=== PATIENT | male | born 1955 | race Caucasian/White ===

== ENCOUNTER 2020-03-14 13:26 | Emergency (ER) | payer OTHER, SELFPAY ==
[2020-03-14 13:28] VITALS: BP 152/94; PULSE 70; RESP 18; TEMP 36.8; O2SAT 97; BMI 28.1
[2020-03-14] MEDS: Diphth,Pertuss(Acell),Tet Vac 0.5 ML Vial IM (13:44)
[2020-03-14] MEDS: Bupivacaine Mpf 0.5% 30 ML VIAL INFILT (13:45)
--- NOTE | 2020-03-14 13:50 | RAD_ITS ---
STUDY: X-RAY - LEFT HAND, ATTENTION FIFTH FINGER REASON FOR EXAM: Male, 64 years old. 5TH DISTAL PHALANX PINCHED IN MACHINERY, PAIN TECHNIQUE: 3 view(s) of the finger were obtained. COMPARISON: None. FINDINGS: Normal metacarpal head. Normal metacarpophalangeal joint. Normal proximal phalanx. Normal middle phalanx. Normal distal phalanx. Normal proximal interphalangeal joint. Normal distal interphalangeal joint. 1 mm x 1.5 mm tiny radiopacity in the ventral soft tissues underlying the middle phalanx of the fifth digit. RAD/Finger(s) Min 2 Views IMPRESSION: Findings suggestive of a tiny radiopaque foreign body in the ventral soft tissues at the level of the mid phalanx of the fifth digit. Electronically Signed: Pravin Skelton, at 14:25 EST , Service support ,
--- NOTE | 2020-03-14 14:10 | ED.VISSUMM ---
- ER Visit Summary Date of Service: 03/14/20 Chief Complaint: Laceration History of Present Illness: The patient is a [address] Lopez. He got his left small finger caught under a transmission raheel and suffered a laceration. He reports he has an aching pain is 6 of 10 with movement for a 10 at rest. Denies any paresthesias. He is unsure when his last tetanus shot was. He is right-hand dominant. Physical Examination: Vitals: Stable. Afebrile. General: Well-nourished and well-developed. Head: Normocephalic atraumatic. Neck: Supple, no lymphadenopathy. No JVD. Nontender. Cardiovascular: Regular rate and rhythm. No murmurs. Respiratory: No respiratory distress. Clear to auscultation bilaterally. Abdominal: Soft, nontender, nondistended, normal bowel sounds. No guarding, rebound, or peritoneal signs. Back: Nontender. Extremities: To the distal phalanx of his left small finger there is an L-shaped laceration that extends over the medial portion of this. There is a small amount of tissue loss. He is neurovascularly intact. Skin: Normal color, no rash. Neurologic: Alert and oriented ?3. Cranial nerves II through XII are intact. Normal strength and sensation. Psych: Normal affect. Test Results: Clinical Impression(s) from Imaging Studies Finger X-Ray 03/14/20 13:50 IMPRESSION: Findings suggestive of a tiny radiopaque foreign body in the ventral soft tissues at the level of the mid phalanx of the fifth digit. Electronically Signed: Pravin Skelton, at 14:25 EST , Service support , Emergency Department Course and Treatment: Patient had his tetanus shot updated. He refused pain medications. He had his wound anesthetized and repaired. He tolerated this well. I did speak with him about the possibility of a metallic foreign body in the middle phalanx. He reports that this is likely been there for quite some time. This is not in the area of the laceration. Treatment Plan: Patient will be discharged instructions follow-up corporate care in 10 to 14 days for suture removal. Return to the emergency department for any worsening symptoms. Disposition: To home in improved and stable condition. Impression: 1. Crush injury left small finger. 2. Laceration left small finger, 2 cm, repaired. Procedure note: Wound was cleansed with chlorhexidine soap. Anesthetized with 1% lidocaine without epinephrine. Copiously irrigated with normal saline. Wound was explored there is no foreign material present. It was closed with 5 simple interrupted 4-0 ethilon sutures. The patient tolerated it well. This note was generated with [employer] dictation software. It may contain incorrect words, spelling, and punctuation that were not noted in review of the chart prior to signing ED Disposition - Plan for ED Patient: Instructions: ED Laceration, Hand: All Closures Referrals: [facility]Care [GROUP OF PHYSICIANS] - 10-14 Days suture removal
== END 2020-03-14 14:53 | disposition home or self-care (01) ==
PROVIDERS: Emergency Provider Emergency Medicine; PCP Family Medicine
DX: S61.217A Laceration without foreign body of left little finger without damage to nail, initial encounter (principal); Z23 Encounter for immunization; W23.0XXA Caught, crushed, jammed, or pinched between moving objects, initial encounter; Y93.89 Activity, other specified; Y92.89 Other specified places as the place of occurrence of the external cause; Y99.0 Civilian activity done for income or pay
CPT/HCPCS: 12001; 73140; 90471; 90715; 99284

== ENCOUNTER 2021-02-20 07:30 | Outpatient (RCR) | payer OTHER, SELFPAY ==
--- NOTE | 2021-02-06 09:38 | HP.PTEVAL_ITS ---
Patient's Visit Information ALONZO MAXWELL is a 65 year old M referred to Physical Therapy by JACKIE Bustos with a diagnosis of R leg pain. Date of Evaluation: 02/06/21 Physical Therapist: Rishabh Mehta, PT, ATC - Visit Plan Frequency: 2x /Week Duration: 2 Weeks Plan: Issue and instruct pt on HEP of core stab ex's, REIL, and LE stretching over next 4 visits - Subjective Pt reports he has had Pain in the anterior region of his R upper thigh for approximately one year. Pt reports the pain is intermittent in nature. Pt reports the pain occurs when he sits for a longer period of time. Pt reports a past MHx of a bone chip in a nerve that resulted in him having surgery for removeal which has left numbness on the anterior aspect of L thigh. Pt reports he did have a recent xray which revealed no significant findings. Pt reports his doctor ordered an MRI but that was declined until after he attempts PT. Pt reports occasional sleep difficulty sercondary to R leg pain. Pt reports walking helps to decrease his pain. 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 0/10 pain at rest, 7/10 pain at worst - Pain R leg pain Pain Intensity (Out of 10): 0 Pain Intensity Range: 7 - Objective Neuro: B LE sensation is WNL to light touch with exception to R anterior thigh which is hyposensitive to light touch. MMT: B LE 5/5 throughout. ROM: Pt is moderately limited with lumbar spine extension. All other movements are WNL. Repeated movements: RFIS 10x2 NE, SINGH 10x2 NE. Prone prop on elbows one min x 2. REIL 10x2 NE - Balance/Special Test Scores Oswestry Low Back Score: 10 - Goals Goal 1:: Decrease R LE pain x 50% to aid with sleep Goal Time Frame: 2-4 Weeks Goal 2:: Pt will physically and verbally display proper posture in order to prevent future episodes of R LE pain Goal Time Frame: 2-4 Weeks Goal 3:: I with HEP Goal Time Frame: 2-4 Weeks - Rehabilitation Potential Physical Therapy Diagnosis: Pt has R leg pain and intolerace for prolonged sitting secondary to L/S disc derrangement Rehabilitation Potential: Good - Anticipated Interventions Patient/Client Instruction: Educate patient on: Condition, Plan of Care For the Purpose of:: To improve self management Therapeutic Exercise to Include: Strength training, Endurance training, Body mechanics, Postural training, Flexibilty training, Dynamic Lumbar Stabilization, Julian Exercises For the Purpose of:: To decrease pain, To increase ROM, To improve muscle performance and motor function Thank you for the opportunity to evaluate your patient. For Medicare and Medicare HMO plans, please review the plan of care and approve it. It will need to be FAXED BACK to us at [phone] for Medicare purposes. For Medicare only, by signing this I certify the plan of care. Please let me know if there are questions or concerns regarding this plan of care. Physician Signature: Date:
--- NOTE | 2021-02-20 08:00 | HP.PTREVAL ---
Melanie Lehman, FINANCE ASSOCIATE-C, It has been my pleasure to treat ALONZO MAXWELL over the last 5 visits for R leg pain. Please see the progress note below for an update on the physical therapy plan of care! Subjective: I was sore yesterday, I feel good today. Objective/Function: Pt has no R LE pain. Pt is now I with HEP and displays proper postural awareness Plan Plan: Pt to follow up with surgeon with regards to recent MRI. Recheck or discharge pt pending visit and progression with HEP in one month. Balance/Gait/Functional tests - Balance/Special Test Scores Oswestry Low Back Score: 7 Goals Goal 1:: Decrease R LE pain x 50% to aid with sleep Goal Time Frame: 2-4 Weeks Goal Progress: Goal Met Goal 2:: Pt will physically and verbally display proper posture in order to prevent future episodes of R LE pain Goal Time Frame: 2-4 Weeks Goal Progress: Goal Met Goal 3:: I with HEP Goal Time Frame: 2-4 Weeks Goal Progress: Goal Met Anticipated Interventions Patient/Client Instruction: Educate patient on: Condition, Plan of Care For the Purpose of:: To improve self management Therapeutic Exercise to Include: Strength training, Endurance training, Body mechanics, Postural training, Flexibilty training, Dynamic Lumbar Stabilization, Julian Exercises For the Purpose of:: To decrease pain, To increase ROM, To improve muscle performance and motor function Please do not hesitate to contact me at [phone] by phone or if you have questions or concerns regarding this new plan of care! Sincerely, Rishabh Mehta, PT, ATC
--- NOTE | 2021-04-08 10:21 | HP.PT.NRP ---
ALONZO MAXWELL was seen in my office for initial evaluation on 02/06/21. The following Plan of Care was established for this patient: Initial Frequency: 2x /Week Initial Duration: 2 Weeks Patient/Client Instruction: Educate patient on: Condition, Plan of Care For the Purpose of:: To improve self management Therapeutic Exercise to Include: Strength training, Endurance training, Body mechanics, Postural training, Flexibilty training, Dynamic Lumbar Stabilization, Julian Exercises For the Purpose of:: To decrease pain, To increase ROM, To improve muscle performance and motor function This patient was last seen in our office . Pertinent comments regarding their Physical therapy will appear below: Pt was treated for 5 PT visits for R leg pain through the date of 02/20/21. Pt has not returned today and is therefore discontinued at this time. At this point I will be discontinuing this patient from physical therapy. I would be happy to see this patient again in the future if found appropriate by the physician. Thank you! Rishabh Mehta, PT, ATC Balance/Gait/Functional tests - Balance/Special Test Scores Oswestry Low Back Score: 7
== END 2021-02-20 19:00 | disposition home or self-care (01) ==
LOC: PT 07:30
PROVIDERS: PCP Family Medicine; Referring Provider Nurse Practitioner; Visit Provider Nurse Practitioner
DX: M51.16 Intervertebral disc disorders with radiculopathy, lumbar region (principal)
CPT/HCPCS: 97110; 97161; 97164

== ENCOUNTER 2021-11-07 04:55 | Emergency (ER) | payer OTHER, SELFPAY ==
[2021-11-07 04:57] VITALS: BP 189/102; PULSE 64; RESP 18; TEMP 36.4; O2SAT 96; BMI 29.0
--- NOTE | 2021-11-07 05:33 | RAD_ITS ---
STUDY: X-RAY - LUMBAR SPINE REASON FOR EXAM: Male, 66 years old. Low back pain with radiation to the left leg TECHNIQUE: 5 view(s) of the lumbar spine were obtained. COMPARISON: None FINDINGS: Normal lumbar lordosis. There is no substantial scoliosis. There is a normal alignment of the vertebrae. Mild multilevel endplate disease. Disc space loss most significantly at L5-S1. There is no demonstrated fracture. There is no demonstrated spondylolysis of the pars interarticulares. Anterior pelvic wall mesh markers. RAD/L/S Spine Min 4 Views IMPRESSION: Degenerative changes of the lumbar spine, most significant at L5-S1. No acute abnormal finding. Electronically Signed: Ze Henson MD at 6:05 EDT ,
[2021-11-07] MEDS: Orphenadrine 60 MG/2 ML Ampul IV (05:37)
[2021-11-07] MEDS: Ketorolac 30 MG/ML Syringe IV (05:37)
[2021-11-07 06:09] LABS: Bacteria 0 SEEN /hpf (None Seen); Color, Urine Yellow (Yellow); Glucose, Dipstick Normal (Normal); Ketone-Dipstick Negative (Negative); Leukocyte Esterase-Dipstick Negative /ul (Negative); Mucous, Urine 0 SEEN /hpf (<or=2+); Nitrite-Dipstick Negative (Negative); Occult Blood-Urine Negative /ul (Negative); Protein-Dipstick Negative (Negative); Red Blood Cells-Urine 0 SEEN /hpf (0-5); Squamous Epithelial Cells - UA 0 SEEN /hpf (0-5); Urine Bilirubin Dipstick Negative (Negative); Urine Clarity Clear (Clear); Urine Urobilinogen Normal (Normal); White Blood Cells 0 SEEN /hpf (0-5)
[2021-11-07] MEDS: Morphine 4 MG/ML Syringe IV (06:10)
[2021-11-07] MEDS: Ondansetron 4 MG/2 ML Vial IV (06:10)
--- NOTE | 2021-11-07 06:17 | EDS_ITS ---
HPI History of Present Illness Chief Complaint: Back Narrative Narrative: Patient is a 66-year-old male with past medical history of migraines and GERD. He states for approximately 1 month he has been having small intermittent twinges of left-sided low back pain. He denies any trauma during this time or excessive activity. He denies any loss of bowel or bladder control or IV drug use. He states as time has gone on he feels that the intensity of the back pain has been slowly worsening. He states he went to his family doctor in the last week secondary to the pain being persistent over the past month and was started on prednisone and Flexeril. Patient states that last night into this morning he has had increased pain in the left low back which radiates down towards the knee. He states it is difficult to walk secondary to this. He denies any fevers or chills dysuria or hematuria. He states however as the pain seems to be worsening despite taking the medication from his provider he comes in for evaluation [facility] Medical History GERD (gastroesophageal reflux disease) Kidney stones Migraines Home Medications divalproex 250 mg tablet,delayed release 250 mg PO BIDCM 03/14/20 [History Last Taken Unknown] esomeprazole magnesium 40 mg capsule,delayed release 40 mg PO DAILY 03/14/20 [H istory Last Taken Unknown] sumatriptan succinate 25 mg tablet 25 mg PO PRN PRN MIGRAINES 03/14/20 [History Last Taken Unknown] cholecalciferol (vitamin D3) 50 mcg (2,000 unit) capsule (Vitamin D3) 50 mcg PO DAILY 11/07/21 [History Last Taken Unknown] cyclobenzaprine 5 mg tablet 5 mg PO QHS 11/07/21 [History Last Taken Unknown] ketorolac 10 mg tablet 10 mg PO Q6H PRN pain 5 days #20 tabs 11/07/21 [Rx Last Taken Unknown] methocarbamol 500 mg tablet 1,000 mg PO Q6H PRN Muscle pain/spasm #56 tabs 11/07/21 [Rx Last Taken Unknown] oxycodone-acetaminophen 5 mg-325 mg tablet (Endocet) 1 tab PO Q6H PRN pain 3 days #12 tabs 11/07/21 [Rx Last Taken Unknown] Allergy/AdvReac Type Severity Reaction Status Date / Time prochlorperazine Allergy Anaphylaxis Verified 03/14/20 13:27 [From Compazine] Surgical History (Updated 11/07/21 @ 05:04 by Rocio Kauffman) History of appendectomy History of hernia surgery Previous back surgery Social History Smoking Status: Never smoker ROS ROS ED Constitutional Constitutional ED: Denies chills or fever(s) ENT ENT ED: Denies sore throat Cardiovascular Cardiovascular: Denies chest pain Respiratory/Chest Respiratory/Chest: Denies cough or dyspnea Gastrointestinal Gastrointestinal: Denies abdominal pain, diarrhea, nausea or vomiting Genitourinary Genitourinary ED: Denies dysuria or hematuria Musculoskeletal Musculoskeletal: Reports back pain; Denies myalgias Integumentary Denies rash Neurologic Neurologic: Denies headache(s) or paresthesias Hematologic/Lymphatic Hematologic/Lymphatic: Denies easy bleeding or easy bruising EXAM Physical Exam Const Vital Signs: 11/07/21 04:57 Temperature 97.5 F L Temperature Source Oral Pulse Rate 64 Respiratory Rate 18 Blood Pressure 189/102 H Blood Pressure Mean 131 Pulse Ox 96 Oxygen Delivery Method Room Air Positive well nourished and well developed General Appearance ED: well developed Eyes PERRL and EOMs intact bilaterally Neck supple Resp normal respiratory effort and clear to auscultation bilaterally Cardio regular rate and regular rhythm Rate: other Other Details: Radial pulses are plus 2 out of 4 bilaterally are equal and symmetric GI normal to inspection, nondistended, normoactive bowel sounds, non-tender and non-distended Auscultation: normoactive bowel sounds Palpation: soft Back/Spine no CVA tenderness Back/Spine Narrative: No bony deformity or step-off of the thoracic or lumbar spine no midline pain on palpation. There is left paralumbar tenderness and spasm noted. There is also pain with palpation along the left lateral thigh in the L5-S1 dermatomal region. no saddle anesthesia. No clonus or Babinski. Negative straight leg raise. Patellar reflexes are plus 2 out of 4 on the right and plus 1 out of 4 on the left Extremity normal to inspection Neuro oriented x3 and CN's II-XII intact bilaterally Sensorium / Orientation: alert Psych mental status grossly normal Skin no rashes or lesions noted Skin Narrative: No soft tissue changes to suggest trauma or infection MDM MDM MDM Narrative Medical decision making narrative: Patient presented to the ER hypertensive but otherwise with stable vitals. I believe the hypertension was related to the pain and did not feel there is a ne ed for a cardiovascular work-up secondary to this. The patient has a previous history of back issues with previous trauma leading to a bone spur pushing on his nerve root. He denies any recent trauma but does state he has been performing normal daily activities and work activities and doing lifting pulling and pushing. He does not have findings concerning for cauda equina or epidural abscess. X-ray showed degenerative changes of the lumbar sacral spine greatest at the L5-S1 region without acute fracture or spondylolisthesis. Urine showed no sign of infection or kidney stone. Patient was medicated with Toradol Norflex and then morphine and did have good resolution of pain. At this time with his diminished reflex and location of pain there is concern that he is developed a herniated disc once again. However as pain is now controlled and patient is able to ambulate there is no need for an emergent MRI orthopedic consultation. Patient can be given symptomatic medications and follow-up with orthopedics on an outpatient basis to discuss need for repeat imaging studies and/or possible surgical intervention Lab Data Attestation: I reviewed the patient's lab results. Labs: Laboratory Results - last 24 hr 11/07/21 06:02 Urine Color Yellow Urine Clarity Clear Urine pH 6.0 Ur Specific Bryant 1.020 Urine Protein Negative Urine Glucose (UA) Normal Urine Ketones Negative Urine Occult Blood Negative Urine Nitrite Negative Urine Bilirubin Negative Urine Urobilinogen Normal Ur Leukocyte Esterase Negative Urine RBC 0 SEEN Urine WBC 0 SEEN Ur Squamous Epith Cells 0 SEEN Urine Bacteria 0 SEEN Urine Mucus 0 SEEN Radiography Diagnostic Testing: Clinical Impression(s) from Imaging Studies Lumbar Spine X-Ray 11/07/21 05:33 IMPRESSION: Degenerative changes of the lumbar spine, most significant at L5-S1. No acute abnormal finding. Electronically Signed: Ze Henson MD at 6:05 EDT , X-ray of the lumbosacral spine as interpreted by the emergency medicine physician reveals mild degenerative changes without acute fracture or spondylolisthesis Discharge Plan Triage Chief Complaint: Back ED Provider: Jose Ivy Dx/Rx/DC Orders Clinical Impression: Acute left lumbar radiculopathy, Degenerative disc disease at L5-S1 level Instructions: Understanding Lumbar Radiculopathy, ED Degenerative Disk Disease Prescriptions: New oxycodone-acetaminophen [Endocet] 5-325 mg tablet 1 tab PO Q6H PRN (Reason: pain) 3 Days Qty: 12 0RF ketorolac 10 mg tablet 10 mg PO Q6H PRN (Reason: pain) 5 Days Qty: 20 0RF methocarbamol 500 mg tablet 1,000 mg PO Q6H PRN (Reason: Muscle pain/spasm) Qty: 56 0RF No Action divalproex 250 MG tablet 250 mg PO BIDCM sumatriptan succinate 25 MG tablet 25 mg PO PRN PRN (Reason: MIGRAINES) esomeprazole magnesium 40 MG capsule,delayed release(DR/EC) 40 mg PO DAILY cyclobenzaprine 5 mg tablet 5 mg PO QHS Label Comments: TAKE 1 TABLET BY MOUTH 3 TIMES A DAY FOR 10 DAYS. cholecalciferol (vitamin D3) [Vitamin D3] 50 mcg (2,000 unit) Capsule 50 mcg PO DAILY Primary Care Provider: Nura Soler Referrals: Nura Soler DO [Primary Care Provider] - Activity Restrictions/Additional Instructions: Please follow-up with your orthopedic surgeon as your history and physical exam indicates that you are having possible herniated disc causing nervous compression that may require an MRI for further diagnosis and or surgical planning. Please take the prescribed medication as directed to help control pain. Please stop the cyclobenzaprine/Flexeril and begin taking Robaxin/methocarbamol for improved muscle spasm relief that we will not lead to increase sedation. Please return to the ER should you have any further concerns Disposition Disposition: Home, Self Care
[2021-11-07 07:17] VITALS: BP 149/92
== END 2021-11-07 07:18 | disposition home or self-care (01) ==
PROVIDERS: Emergency Provider Emergency Medicine; Visit Provider Emergency Medicine
DX: M51.37 Other intervertebral disc degeneration, lumbosacral region (principal); M47.26 Other spondylosis with radiculopathy, lumbar region; K21.9 Gastro-esophageal reflux disease without esophagitis; Z79.52 Long term (current) use of systemic steroids; Z79.899 Other long term (current) drug therapy
CPT/HCPCS: 72110; 72158; 80048; 81001; 96374; 96375; 96376; 99283; A9575; A4216; J2405

== ENCOUNTER 2021-11-07 16:57 | Emergency (ER) | payer OTHER, SELFPAY ==
[2021-11-07 16:58] VITALS: BP 148/98; PULSE 58; RESP 16; RESP 18; TEMP 35.8; O2SAT 97; BMI 28.1
--- NOTE | 2021-11-07 17:14 | MRI_ITS ---
STUDY: MRI LUMBAR SPINE WITHOUT CONTRAST REASON FOR EXAM: Male, 66 years old. Lumbar back pain lt radiculopathy, prev lumbar surg 2014 TECHNIQUE: MRI examination lumbar spine obtained with standard protocol including multiplanar multiecho pre and postcontrast imaging. Contrast: 17 mL to dotarem. COMPARISON: None FINDINGS: Vertebral bodies and alignment. 1. Vertebral body height and alignment are maintained. No evidence of marrow edema or occult fracture. 2. Paraspinous soft tissue planes have normal appearance. Normal appearance of the muscular fascial planes of the erector spinae. 3. Normal appearance of the sacrum and sacroiliac joints. 4. No areas of abnormal contrast enhancement. Intervertebral disks levels. T12-L1: Mild facet hypertrophic changes, no evidence of disc herniation or canal stenosis. L1-2: Disc desiccation, broad-based posterior disc bulge without evidence of disc herniation or canal stenosis. Facet hypertrophic changes are present. L2-3: Disc desiccation, broad-based posterior disc bulge/borderline protrusion, mild effacement of the lateral recesses greater on the RIGHT than LEFT without nemo nerve root impingement. No canal stenosis. There are findings consistent with prior RIGHT laminectomy. L3-4: Broad-based posterior disc bulge and osteophyte formation, no evidence of canal stenosis, there is narrowing of the lateral recesses with crowding of nerve roots without nemo nerve root impingement. Mild foraminal narrowing is noted without nemo nerve root impingement. Mild facet arthropathy. L4-5: LEFT posterolateral disc protrusion with a foraminal disc herniation, compression and LEFT lateral recess with mild impingement of the emerging LEFT L5 nerve root within the LEFT lateral recess, additional impingement of the L4 nerve root in the LEFT lateral recess. No canal stenosis. Mild facet hypertrophic changes. Lateral recess without nemo of the L5-S1: Disc desiccation, broad-based mildly eccentric LEFT greater than RIGHT disc protrusion osteophyte complex without canal or foraminal narrowing. No evidence of nerve root impingement. Spinal cord: Normal appearance of the spinal cord and conus. Conus is located at L1. Cauda equina has normal appearance. No evidence of cord compression or edema. No intramedullary signal abnormality noted. MRI/Spine Lumbar W/WO Contrast IMPRESSION: 1. Moderate multilevel lumbar spondylosis. There is a RIGHT posterolateral disc bulge/for line protrusion at L2-3 with effacement of the RIGHT lateral recess and RIGHT neural foramen without canal stenosis. No nemo nerve root impingement at this level. 2. LEFT posterior lateral foraminal disc herniation at L4-5 with an impingement of the LEFT L5 nerve root in the LEFT lateral recess and LEFT L4 nerve root in the LEFT neural foramen. No canal stenosis. 3. Disc desiccation and broad-based mildly eccentric disc protrusion and osteophyte at L5-S1 without evidence of canal or foraminal narrowing. 4. Normal appearance of visualized spinal cord, conus and cauda equina. No intradural or intramedullary signal or contrast abnormality. 5. Postoperative changes of prior laminectomy on the RIGHT at L2-3. Electronically Signed: Rupert Pompa MD at 20:48 EDT ,
--- NOTE | 2021-11-07 17:16 | ED.VIS.BACK ---
HPI History of Present Illness Chief Complaint: Back Informant: patient and spouse/S.O. Onset/Context/Timing Onset: Weeks Context: Gradual Onset Timing: Continuous Quality: Sharp and Burning Location: Lumbar and Left Leg Current Severity: Moderate Maximum Severity: Severe Worsened by: improves with Movement, Ambulation, Bending and Lifting Relieved by: Remaining Still Associated Symptoms Associated Symptoms: Radiation to Left Leg; Negative for Fever, Abdominal Pain, Dysuria, Unable to Ambulate, Unable to Transfer, Urinary Retention, Urinary Incontinence, Constipation or Fecal Incontinence Narrative Narrative: 66-year-old male history of prior back surgery done by Dr. Nura Rodriguez of the [facility] physician group. Patient states for last month has had increasing lower back pain radiating to his left buttock and down his leg to his knee. This is seen emergency department earlier today received pain medication but the pain is now back. He denies any bowel or bladder incontinence. No fever. He is on no anticoagulants. He has no bowel or bladder incontinence or retention. He denies any fall or trauma. No fever. Had a similar episode on the right in the past and it was there was a bone chip compressing a nerve he states he had the surgery and it resolved the symptoms. Prior similar symptoms: Yes Recent Illness/Hospitalization: No PFSH [facility] Medical History GERD (gastroesophageal reflux disease) Kidney stones Migraines Home Medications divalproex 250 mg tablet,delayed release 250 mg PO BIDCM 03/14/20 [History Last Taken Unknown] esomeprazole magnesium 40 mg capsule,delayed release 40 mg PO DAILY 03/14/20 [History Last Taken Unknown] sumatriptan succinate 25 mg tablet 25 mg PO PRN PRN MIGRAINES 03/14/20 [History Last Taken Unknown] cholecalciferol (vitamin D3) 50 mcg (2,000 unit) capsule (Vitamin D3) 50 mcg PO DAILY 11/07/21 [History Last Taken Unknown] cyclobenzaprine 5 mg tablet 5 mg PO QHS 11/07/21 [History Last Taken Unknown] ketorolac 10 mg tablet 10 mg PO Q6H PRN pain 5 days #20 tabs 11/07/21 [Rx Last Taken Unknown] methocarbamol 500 mg tablet 1,000 mg PO Q6H PRN Muscle pain/spasm #56 tabs 11/07/21 [Rx Last Taken Unknown] ondansetron 4 mg disintegrating tablet 4 mg PO Q6H PRN nausea and vomiting #10 tabs 11/07/21 [Rx Last Taken Unknown] oxycodone-acetaminophen 5 mg-325 mg tablet (Endocet) 1 tab PO Q6H PRN pain 3 days #12 tabs 11/07/21 [Rx Last Taken Unknown] Allergy/AdvReac Type Severity Reaction Status Date / Time prochlorperazine Allergy Anaphylaxis Verified 03/14/20 13:27 [From Compazine] Surgical History History of appendectomy History of hernia surgery Previous back surgery Social History Smoking Status: Never smoker ROS ROS ED ROS Narrative Back pain radiating to his left leg. Review of Systems ROS Unobtainable: Denies due to encephalopathy Constitutional Constitutional ED: Denies chills or fever(s) Eyes Eyes: Denies blurry vision ENT ENT ED: Denies ear pain Cardiovascular Cardiovascular: Denies chest pain or palpitations Respiratory/Chest Respiratory/Chest: Denies dyspnea Gastrointestinal Gastrointestinal: Denies abdominal pain Genitourinary Genitourinary ED: Denies dysuria Musculoskeletal Musculoskeletal: Reports back pain; Denies arthralgias Integumentary Denies abscess or Abrasions Neurologic Neurologic: Denies headache(s) Psychiatric Psychiatric: Denies anxiety Endocrine Endocrinology: Denies cold intolerance Hematologic/Lymphatic Hematologic/Lymphatic: Denies easy bleeding Allergic/Immunologic Allergic/Immunologic ED: Denies mouth swelling or tongue swelling EXAM Physical Exam Narrative Exam Narrative: 66-year-old male vital signs are stable afebrile. H EENT exam unremarkable. Neck nontender. Lungs auscultation bilaterally. Heart regular rhythm no murmur. Abdomen soft nontender normal bowel sounds no peritoneal signs. Moving all 4 extremities. Positive straight leg raise on the left at about 15 to 30 degrees. Dorsi plantarflexion intact bilaterally. No cauda equina. No saddle anesthesia. Normal motor strength and sensation. Back tenderness over the left SI joint. Neurologically is awake alert with no focal motor deficits. No cauda equina. No saddle anesthesia. Normal medial thigh sensation. Const Vital Signs: 11/07/21 16:58 11/07/21 16:58 11/07/21 20:27 Temperature 96.5 F L 96.5 F L Temperature Source Temporal Temporal Pulse Rate 58 L 58 L 55 L Respiratory Rate 18 16 15 Blood Pressure 148/98 H 148/98 H 154/91 H Blood Pressure Mean 114 114 112 Pulse Ox 97 97 95 Oxygen Delivery Method Room Air Room Air Room Air Positive well nourished and well developed; Negative for obese, cachectic or contractures General Appearance ED: well developed; Negative for cachectic or contractures Nutritional Appearance: Negative for cachectic or obese HEENT Reports moist mucous membranes; Denies dry mucous membranes Negative for trauma or tenderness Mouth ED: No dry mucous membranes Mouth: No dry mucous membranes Eyes PERRL and EOMs intact bilaterally General Eye ED: Negative for pale conjunctiva or scleral icterus Neck no lymphadenopathy, supple and no JVD General: Negative for tenderness Thyroid: Negative for other Resp normal respiratory effort and clear to auscultation bilaterally Effort and Inspection: Negative for pain with movement Auscultation: Negative for rales or rhonchi Percussion: Negative for other Cardio regular rate, regular rhythm, S1 normal heart sound, S2 normal heart sound and no murmurs Rhythm: Negative for abnormal rhythm GI normal to inspection, nondistended, normoactive bowel sounds, soft to palpation, non-tender, non-distended and no masses Inspection: Negative for abdominal distention Palpation: Negative for tender or guarding Back/Spine normal to inspection and no thoracic nor lumbar tenderness Back/Spine Narrative: Left SI tenderness. Positive straight leg raise test on the left about 15 to 30 degrees. Cervical Spine: Negative for cervical spine tenderness Thoracic Spine / Upper Back: Negative for paraspinal muscle tenderness Extremity normal to inspection and no clubbing, cyanosis or edema Extremity Narrative: Normal motor strength and sensation. Neuro oriented x3 and no sensory deficits noted Sensorium / Orientation: alert; Negative for confused, lethargic or stuporous Motor Exam: strength 5/5 throughout Psych mental status grossly normal Attitude: No agitated Mood & Affect: Negative for depressed, sad or tearful Skin no rashes or lesions noted and no wounds General Skin Exam: Negative for jaundice Lesions: No lesion noted Rashes: No rashes noted Trauma: Negative for abrasion Wounds: Negative for wounds noted MDM MDM MDM Narrative Medical decision making narrative: 66-year-old male with prior back surgery. Presents with increasing low back pain for a month with radiculopathy to his left knee. Positive straight leg raise on the left. He has intractable pain he was seen earlier today and is already returning because the pain so severe. MRI will be obtained. Concern is for disc or some type of nerve compression process. Patient be treated with IV Dilaudid and Zofran. Patient had an MRI needed more pain medication and was given a second dose of IV Dilaudid. Had nausea and was given IV Zofran. Repeat exam patient's pain is much better at 930. He did receive a total of 2 mg IV of Dilaudid. He is having some nausea if not noted be given another dose of Zofran. Otherwise we discussed his MRI results. He is in a follow-up with Dr. Nura Rodriguez of the [facility] who is his spine surgeon who did surgery on him in the past. He already has Percocet and Toradol at home for pain. Have also be written for Zofran for his nausea. And they know to call and follow-up with the applications support specialist as soon as possible. Lab Data Attestation: I reviewed the patient's lab results. Lab results narrative: Chemistry was obtained due to the MRI with contrast. He had a BUN of 21 and a creatinine 0.7. Glucose of 90. Gap of 6. He was basically unremarkable. Labs: Laboratory Results - last 24 hr 11/07/21 17:35 Sodium 139 Potassium 3.9 Chloride 105 Carbon Dioxide 28.0 Anion Gap 6 BUN 21 H Creatinine 0.78 Estim Creat Clear Calc 92.56 Est GFR (MDRD) Af Amer 129 Est GFR (MDRD) Non-Af 107 BUN/Creatinine Ratio 27.0 H Glucose 90 Calcium 8.3 L Radiography Diagnostic Testing: Clinical Impression(s) from Imaging Studies Lumbar Spine MRI 11/07/21 17:14 IMPRESSION: 1. Moderate multilevel lumbar spondylosis. There is a RIGHT posterolateral disc bulge/for line protrusion at L2-3 with effacement of the RIGHT lateral recess and RIGHT neural foramen without canal stenosis. No nemo nerve root impingement at this level. 2. LEFT posterior lateral foraminal disc herniation at L4-5 with an impingement of the LEFT L5 nerve root in the LEFT lateral recess and LEFT L4 nerve root in the LEFT neural foramen. No canal stenosis. 3. Disc desiccation and broad-based mildly eccentric disc protrusion and osteophyte at L5-S1 without evidence of canal or foraminal narrowing. 4. Normal appearance of visualized spinal cord, conus and cauda equina. No intradural or intramedullary signal or contrast abnormality. 5. Postoperative changes of prior laminectomy on the RIGHT at L2-3. Electronically Signed: Rupert Pompa MD at 20:48 EDT , Discharge Plan Triage Chief Complaint: Back ED Provider: Aime Michael Dx/Rx/DC Orders Clinical Impression: Acute left lumbar radiculopathy, Degenerative disc disease at L5-S1 level Instructions: ED Degenerative Disk Disease Prescriptions: New ondansetron 4 mg tablet,disintegrating 4 mg PO Q6H PRN (Reason: nausea and vomiting) Qty: 10 0RF No Action divalproex 250 MG tablet 250 mg PO BIDCM sumatriptan succinate 25 MG tablet 25 mg PO PRN PRN (Reason: MIGRAINES) esomeprazole magnesium 40 MG capsule,delayed release(DR/EC) 40 mg PO DAILY cyclobenzaprine 5 mg tablet 5 mg PO QHS Label Comments: TAKE 1 TABLET BY MOUTH 3 TIMES A DAY FOR 10 DAYS. cholecalciferol (vitamin D3) [Vitamin D3] 50 mcg (2,000 unit) Capsule 50 mcg PO DAILY oxycodone-acetaminophen [Endocet] 5-325 mg tablet 1 tab PO Q6H PRN (Reason: pain) 3 Days Qty: 12 0RF ketorolac 10 mg tablet 10 mg PO Q6H PRN (Reason: pain) 5 Days Qty: 20 0RF methocarbamol 500 mg tablet 1,000 mg PO Q6H PRN (Reason: Muscle pain/spasm) Qty: 56 0RF Primary Care Provider: Nura Soler Referrals: Sandip Rodriguez DO [Non-Staff] - As soon as possible Nura Soler DO [Primary Care Provider] - Activity Restrictions/Additional Instructions: Your pain medications as prescribed. Zofran as needed for nausea. You may swallow it or let dissolve in your tongue. Call and follow-up with your applications support specialist Dr. Nura Rodriguez at the [facility] tomorrow morning and see when engaging in soon as possible. Disposition Disposition: Home, Self Care
[2021-11-07] MEDS: Ondansetron 4 MG/2 ML Vial IV ×3 (17:26→21:38)
[2021-11-07] MEDS: HYDROmorphone 1 MG/ML Syringe IV ×2 (17:28→19:20)
[2021-11-07 17:59] LABS: Anion Gap 6 (5-15); BUN 21 mg/dL (7-18); Calcium,Total 8.3 mg/dL (8.5-10.1); Chloride 105 mmol/L (98-107); Creatinine, Serum 0.78 mg/dL (0.70-1.30); EST Glomerular Filtration Rate 107 mL/min (>60); Est Glom Filt Rate - Afr Amer 129 mL/min (>60); Estimated Creatinine Clearance 92.56 ml/min; Glucose 90 mg/dL (74-106); Potassium 3.9 mmol/L (3.5-5.1); Sodium Level 139 mmol/L (136-145)
[2021-11-07 20:27] VITALS: BP 154/91; PULSE 55; RESP 15; O2SAT 95
[2021-11-07 21:29] VITALS: BP 146/86; PULSE 50; RESP 15; O2SAT 96
== END 2021-11-07 22:15 | disposition home or self-care (01) ==
PROVIDERS: Emergency Provider Emergency Medicine; Visit Provider Emergency Medicine
DX: M51.37 Other intervertebral disc degeneration, lumbosacral region (principal); M47.26 Other spondylosis with radiculopathy, lumbar region; R11.0 Nausea; Z98.890 Other specified postprocedural states
CPT/HCPCS: 96375; 96376; 96374; 72158; 80048; A9575; A4216; J2405

== ENCOUNTER 2022-10-24 13:30 | Emergency (ER) | payer OTHER, SELFPAY ==
[2022-10-24 13:31] VITALS: BP 164/101; PULSE 87; RESP 18; TEMP 36.6; O2SAT 95; BMI 27.9
[2022-10-24] MEDS: Lidocaine 1% (20 ml mdv) 20 ML Vial INFILT (13:47)
[2022-10-24] MEDS: Diphth,Pertuss(Acell),Tet Vac 0.5 ML Vial IM (13:52)
[2022-10-24 13:55] VITALS: RESP 16
--- NOTE | 2022-10-24 14:32 | EX.ED.GENINJ ---
HPI History of Present Illness Chief Complaint: Laceration Informant: patient Narrative Narrative: 67 old male was at work today when he sustained a right hand injury. The patient was holding on to a pipe while somebody else was hammering it. The pipe came up and injured his right thumb and middle finger. He notes there was a dime sized area of skin that was superficially avulsed off the dorsum of the right thumb as well as an approximate 4 cm linear laceration over the medial aspect of the thumb. Bleeding controlled at the scene. He also notes a small laceration over the distal tip of the right middle finger and a partial nail avulsion of the same finger. Unknown last tetanus. He notes the pain is improved. He denies any loss of motion or sensation. He denies any other injuries. Tetanus Immunization: Unknown [facility] Medical History GERD (gastroesophageal reflux disease) Kidney stones Migraines Home Medications esomeprazole magnesium 40 mg capsule,delayed release 40 mg PO DAILY 03/14/20 [History Last Taken Unknown] sumatriptan succinate 25 mg tablet 25 mg PO PRN PRN MIGRAINES 03/14/20 [History Last Taken Unknown] hydrocodone-acetaminophen 5-325mg 5mg-325mg 1 tab PO Q6H PRN PRN Pain 3 days #10 TABLETS 10/24/22 [Rx Last Taken Unknown] Allergy/AdvReac Type Severity Reaction Status Date / Time prochlorperazine Allergy Anaphylaxis Verified 10/24/22 13:34 [From Compazine] Surgical History History of appendectomy History of hernia surgery Previous back surgery Social History (Updated 10/24/22 @ 14:[address] Mike Richardson DO) current gender identity: male Smoking Status: Never smoker ROS ROS ED Constitutional Constitutional ED: Denies chills or weight loss Eyes Eyes: Denies change in vision or diplopia ENT ENT ED: Denies ear pain, rhinorrhea or sore throat Cardiovascular Cardiovascular: Denies chest pain, orthopnea, palpitations or racing heartbeat Respiratory/Chest Respiratory/Chest: Denies cough, dyspnea or orthopnea Gastrointestinal Gastrointestinal: Denies abdominal pain, diarrhea, nausea or vomiting Genitourinary Genitourinary ED: Denies dysuria, hematuria or urinary frequency Musculoskeletal Musculoskeletal: Reports other Details: see HPI ; Denies arthralgias or myalgias Integumentary Denies abscess or rash Neurologic Neurologic: Denies headache(s) or weakness Psychiatric Psychiatric: Denies anxiety, depression, suicidal ideation or suicidal thoughts Endocrine Endocrinology: Denies polydipsia, polyphagia or polyuria Allergic/Immunologic Allergic/Immunologic ED: Denies mouth swelling, tongue swelling or urticaria EXAM Physical Exam Const Vital Signs: 10/24/22 13:31 10/24/22 13:55 10/24/22 14:41 Temperature 97.8 F Temperature Source Temporal Pulse Rate 87 Respiratory Rate 18 16 18 Blood Pressure 164/101 H Blood Pressure Mean 122 Pulse Ox 95 Oxygen Delivery Method Room Air Positive well nourished and well developed General Appearance ED: well developed HEENT Reports normocephalic, head/scalp atraumatic and moist mucous membranes Eyes PERRL and EOMs intact bilaterally Neck no lymphadenopathy, supple and no JVD Resp normal respiratory effort and clear to auscultation bilaterally Cardio regular rate, regular rhythm and no murmurs GI normal to inspection, nondistended, normoactive bowel sounds and non-tender Palpation: soft Back/Spine no CVA tenderness and normal ROM Extremity Extremity Narrative: Right Thumb - 4 cm linear laceration over medial aspect with mild venous bleeding. Right Middle Finger - 0.5 cm laceration distal tip with distal, lateral 1/4 nail partial avulsion. No subungal hematoma. NVI to motor and sensory Tendon function intact General Extremety ED: Negative for edema General Extremity: Negative for edema Neuro oriented x3 and CN's II-XII intact bilaterally Sensorium / Orientation: alert Motor Exam: strength 5/5 throughout Psych mental status grossly normal Mood & Affect: Negative for depressed or tearful Skin no rashes or lesions noted MDM MDM MDM Narrative Medical decision making narrative: The right thumb was locally anesthetized using 1% lidocaine. The right middle finger was anesthetized using a single volar approach for digital block using 1% lidocaine. Once adequate anesthesia was obtained the hands which were heavily soiled from work were washed with soap and water. Each finger was then scrubbed using Betadine and sterile saline. The right thumb was closed using a total of 8 simple interrupted 4-0 Ethilon sutures. Good wound approximation was obtained. The wound was dressed with Vaseline coated gauze and sterile gauze. The right middle finger laceration was closed using 2 simple interrupted 4-0 Ethilon sutures. The partially avulsed 25% distal nail avulsion was fully removed. The nailbed was obliterated and the nail margins revised. The wound was dressed the same as the thumb. Patient's tetanus was updated with Adacel. Wound care discussed with patient. Stitches will need to be removed in approximately 10 days. He was advised on Motrin for pain and he received prescription for [place] for further pain control. Return instructions including for wound infection were given. Follow-up will be with the [facility]. Patient had no further questions regarding care. Discharge Plan Triage Chief Complaint: Laceration ED Provider: Mike Richardson Dx/Rx/DC Orders Clinical Impression: Finger laceration, Laceration of finger with damage to nail Instructions: ED Laceration, Hand: All Closures Prescriptions: New hydrocodone-acetaminophen [hydrocodone-acetaminophen] 5-325 mg tablet 1 tab PO Q6H PRN PRN (Reason: Pain) 3 Days Qty: 10 0RF No Action sumatriptan succinate 25 MG tablet 25 mg PO PRN PRN (Reason: MIGRAINES) esomeprazole magnesium 40 MG capsule,delayed release(DR/EC) 40 mg PO DAILY Primary Care Provider: Rupert Falk NP Referrals: [facility] [Non-Staff] - 10 Day for suture removal Rupert Falk NP, NUTRITION TECH-C [Primary Care Provider] - Disposition Disposition: Home, Self Care
[2022-10-24 14:41] VITALS: RESP 18
== END 2022-10-24 14:45 | disposition home or self-care (01) ==
PROVIDERS: Emergency Provider Emergency Medicine; PCP Nurse Practitioner Family; Visit Provider Emergency Medicine
DX: S61.011A Laceration without foreign body of right thumb without damage to nail, initial encounter (principal); S61.312A Laceration without foreign body of right middle finger with damage to nail, initial encounter; Z23 Encounter for immunization; W26.8XXA Contact with other sharp object(s), not elsewhere classified, initial encounter
CPT/HCPCS: 12002; 90471; 90715; 99283

== ENCOUNTER 2023-03-13 07:30 | Outpatient (RCR) | payer OTHER, SELFPAY ==
--- NOTE | 2023-02-10 15:43 | HP.PTEVAL_ITS ---
Patient's Visit Information Visit Information Visit Information: ALONZO MAXWELL is a 67 year old M referred to Physical Therapy by RUBY YBARRA with a diagnosis of L ITB syndorme, trochanteric bursitis. Date of Evaluation: 02/10/23 Physical Therapist: Enoc Loving, DPT, OCS, CSCS Visit Plan Frequency: 2x /Week Duration: 4-6 Weeks Plan: 2x/week for 3-6 for 1. US nonthermal when painful to L GT bursa area. rollout and STM to HS adn ITB L. 2. Teach HS and piriformis stretch for HPE iwth pics(already doing ITB) 3. strengthen core and hips to HEP 4. TENS and ice if needed. L hip Subjective Subjective: L hip pain. been hurting for 3 months plus. Not sure why it started. Saw [facility] clinic and had x rays and joints are good. ortho today said trochanteric buristis and ITb syndrome. Had back surgery 1.5 yrs ago. no new jobs or hobbies. No regular exercises. 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 suffers through it right now and takes advil. Today is good day. Not sure why it is up and down day to day. Most nights wakes up with pain L hip, sleeps on side at night. Hobbies: work, smoke meat. Pain L hip pain: Pain Intensity (Out of 10): 0 Pain Intensity Range: 0 and 9 Objective Objective: Walking without antalgia today , transfers easily and steps without pain or rail today. Tender over L GT bursa but not ITB. Max tight L HS and ITB, mod in piriformis and min in quads B. reflexes 2/3 patella and achilles sensation LE WNL to gross light touch in LE LB AROM stiff in ext and flexion and min deficits SB but not painful - slump - SLR strength LE 4/5 in hip abd and ext, 4 in flexion, knee ext and flexion 4+, ankles 4+, no pain today. Balance/Special Test Scores Lower Extremity Functional Score: 54 Goals Goal 1:: Sleep without waking at night consistently Goal Time Frame: 4-6 Weeks Goal 2:: Pain 1/10 at worst adn intermittent and 80% better overall. Goal Time Frame: 4-6 Weeks Goal 3:: I hEP to manage symptoms Goal Time Frame: 4-6 Weeks Goal 4:: LEFS 65 Goal Time Frame: 4-6 Weeks Rehabilitation Potential Physical Therapy Diagnosis: L trochanteric bursitis pain limiting comfortable funciton Rehabilitation Potential: Fair Anticipated Interventions Patient/Client Instruction: Educate patient on: Condition and Plan of Care For the Purpose of:: To decrease pain, To increase ROM, To improve nutrient delivery to tissue, To improve muscle performance and motor function, To increase tolerance to activity/condition/position, To improve ability of physical actions for home/community/work/leisure and To improve gait and locomo tor functions Therapeutic Exercise to Include: Strength training, Flexibilty training, Passive ROM and Active ROM For the Purpose of:: To decrease pain, To increase ROM, To improve nutrient delivery to tissue, To improve muscle performance and motor function and To increase tolerance to activity/condition/position Manual Therapy Techniques to Include: Mobilization and Soft tissue mobilization For the Purpose of:: To increase ROM and To improve nutrient delivery to tissue TENS: Yes Cryotherapy (ice pack, ice massage): Yes Ultrasound (thermal/non thermal): Yes (nonthermal L hip) For the Purpose of:: To decrease pain, To decrease swelling/inflammation, To increase ROM and To improve nutrient delivery to tissue Text: Thank you for the opportunity to evaluate your patient. For Medicare and Medicare HMO plans, please review the plan of care and approve it. It will need to be FAXED BACK to us at [phone] for Medicare purposes. For Medicare only, by signing this I certify the plan of care. Please let me know if there are questions or concerns regarding this plan of care. Physician Signature: Date:
--- NOTE | 2023-03-13 07:39 | HP.PTDCSUM_ITS ---
Discharge Summary D/C summary: It has been my pleasure to treat ALONZO MAXWELL referred by RUBY YBARRA, with the diagnosis of L ITB syndorme, trochanteric bursitis for a total of 8 visit(s). Discharge Date: 03/13/23 Please see the following information for a summary of their discharge status. Subjective Subjective: Way less pain, less often adn less intense. .5/10 this week rarely. Infrequently. 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 Activiites: normal Sleeping well. HEP going well. No f/u with doctor. Pain L hip pain: Pain Intensity (Out of 10): 1 Overall Improvement % Improvement: 98 Objective Objective/Function: Good ROM and function of B hips, walking , sidestep and stairs without pain today. Feeling much better overall and ready to be on his own at home. Goals Goal 1:: Sleep without waking at night consistently Goal Progress: Goal Met Goal 2:: Pain 1/10 at worst adn intermittent and 80% better overall. Goal Progress: Goal Met Goal 3:: I hEP to manage symptoms Goal Progress: Goal Met Goal 4:: LEFS 65 Goal Progress: Goal Met Plan Plan: d/c D/C Information d/c sentence: If there are questions or concerns regarding this patient's physical therapy, please feel free to call me at [phone]. Thank you for the referral of this patient. Sincerely, Enoc Loving, DPT, OCS, CSCS Balance/Gait/Functional tests Balance/Special Test Scores Lower Extremity Functional Score: 74 Improvement % Improvement: 98
== END 2023-03-13 19:00 | disposition home or self-care (01) ==
LOC: PT 07:30
PROVIDERS: PCP Nurse Practitioner Family
DX: M70.62 Trochanteric bursitis, left hip (principal); M76.32 Iliotibial band syndrome, left leg
CPT/HCPCS: 97035; 97110; 97140; 97161; 97164

== ENCOUNTER 2023-12-28 06:18 | Emergency (ER) | payer MEDICARE, OTHER, SELFPAY ==
[2023-12-28 06:19] VITALS: BP 169/88; PULSE 58; RESP 11; TEMP 36.6; O2SAT 96; BMI 28.8
--- NOTE | 2023-12-28 06:29 | RAD_ITS ---
EXAM: XR CHEST, 1 VIEW CLINICAL INDICATION: CHEST PAIN CHEST PAIN TECHNIQUE: Frontal view of the chest. COMPARISON: No relevant prior studies available. FINDINGS: LUNGS AND PLEURAL SPACES: There is minimal left basilar atelectasis. There is no demonstrated pulmonary infiltrate. No pneumothorax. No effusion. HEART: Unremarkable. Cardiac silhouette not enlarged. MEDIASTINUM: Central airways and mediastinal contour are unremarkable. BONES/JOINTS: Unremarkable. No acute fracture. SOFT TISSUES: Unremarkable. RAD/Chest 1 View (Portable) IMPRESSION: No acute findings in the chest. Electronically Signed: Vladislav Mckenzie MD at 7:29 EDT Reading Location ID and State: [facility] / [place] , Service support ,
--- NOTE | 2023-12-28 06:29 | EKG12_ITS ---
Test Reason : CHEST PAIN Blood Pressure : / mmHG Vent. Rate : 055 BPM Atrial Rate : 055 BPM P-R Int : 162 ms QRS Dur : 090 ms QT Int : 438 ms P-R-T Axes : 027 -01 035 degrees QTc Int : 419 ms Sinus bradycardia Otherwise normal ECG Confirmed by Nirav Yan ([id number]), book or script editor KALEB SAM ([id number]) on 12/30/2023 5:57:32 AM Referred By: TABATHA Confirmed By:Nirav Yan
--- NOTE | 2023-12-28 06:30 | EDS_ITS ---
HPI History of Present Illness Chief Complaint: Chest Pain Informant: patient and spouse/S.O. Narrative Narrative: 68-year-old male presenting with chest pain. It is retrosternal aching occasionally feeling tingling with it in his left arm. He states it has been intermittent for the last several months. Usually last 15-20 minutes per episode. Tonight it has been present all night, waxing and waning, sometimes worse than others, but has not gone away in over 7 hours. States he has a stress test and an echocardiogram scheduled for later in the week because of the symptoms, but he presents here today because it has never lasted this long. He denies any dyspnea, palpitations, near-syncope or syncope, nausea or vomiting. No history of heart problems that he knows of. When you saw his doctor for this issue, he was placed on metoprolol but was not on it before that. [facility] Medical History (Updated 12/28/23 @ 06:[address] 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) Laceration of right middle finger w/o foreign body with damage to nail Laceration of right thumb Kidney stones GERD (gastroesophageal reflux disease) Migraines Home Medications ?Medication ?Instructions ?Recorded ?Last Taken ?Type esomeprazole magnesium 40 mg 40 mg PO DAILY 03/14/20 Unknown History capsule,delayed release sumatriptan succinate 25 mg tablet 25 mg PO PRN PRN MIGRAINES 03/14/20 Unknown History metoprolol succinate 25 mg 25 mg PO DAILY 12/28/23 Unknown History tablet,extended release 24 hr valsartan 160 mg tablet 160 mg PO DAILY 12/28/23 Unknown History Allergy/AdvReac Type Severity Reaction Status Date / Time prochlorperazine (From Allergy Anaphylaxis Verified 12/28/23 06:18 Compazine) Surgical History History of hernia surgery Previous back surgery History of appendectomy Social History Smoking Status: Never smoker ROS ROS ED Constitutional Constitutional ED: Reports sweats; Denies chills or fever(s) Eyes Eyes: Denies change in vision or diplopia ENT ENT ED: Denies rhinorrhea or sore throat Cardiovascular Cardiovascular: Reports as per HPI and chest pain; Denies palpitations Respiratory/Chest Respiratory/Chest: Denies cough or dyspnea Gastrointestinal Gastrointestinal: Denies abdominal pain, diarrhea, nausea or vomiting Genitourinary Genitourinary ED: Denies dysuria or hematuria Musculoskeletal Musculoskeletal: Denies back pain or neck pain Integumentary Denies abscess or rash Neurologic Neurologic: Denies headache(s), paresthesias or weakness Psychiatric Psychiatric: Denies suicidal thoughts EXAM Physical Exam Const Vital Signs: 12/28/23 06:19 12/28/23 06:22 12/28/23 06:34 Temperature 98 F Temperature Source Oral Pulse Rate 58 L Respiratory Rate 11 L Respiratory Effort Short of Breath Blood Pressure 169/88 H Blood Pressure Mean 115 Pulse Ox 96 97 Oxygen Delivery Method Room Air Room Air 12/28/23 06:39 12/28/23 06:58 Temperature Temperature Source Pulse Rate 57 L 55 L Respiratory Rate Respiratory Effort Blood Pressure 158/84 H 141/82 H Blood Pressure Mean Pulse Ox Oxygen Delivery Method Positive well nourished and well developed General Appearance ED: well developed and NAD HEENT Reports moist mucous membranes normocephalic and atraumatic Eyes PERRL and EOMs intact bilaterally Neck full ROM and supple Chest Wall inspection of chest normal and palpation of chest normal Resp normal respiratory effort and clear to auscultation bilaterally Cardio regular rate, regular rhythm and no murmurs GI non-tender and non-distended Auscultation: normoactive bowel sounds Palpation: soft Back/Spine no CVA tenderness General Back: other FROM Extremity normal to inspection General Extremety ED: Negative for edema, pulses abnormal or tenderness General Extremity: Negative for edema or pulses abnormal Neuro oriented x3, CN's II-XII intact bilaterally and no sensory deficits noted Sensorium / Orientation: awake and alert Motor Exam: strength 5/5 throughout Skin no rashes or lesions noted and no wounds Heart Score History: Moderately Suspicious ECG: Normal Age: >/= 65 years Risk Factors: 1 or 2 Risk Factors Troponin: </= Normal Limit Score: 4 MDM MDM MDM Narrative Medical decision making narrative: Patient's EKG is completely normal, currently stating his discomfort is 5/10. Offered him something for the discomfort which she is amenable to, will give him aspirin 162 mg and the nitroglycerin. Esophageal etiologies are in the differential here, especially since he has been having this for months and has a normal EKG. He states he has a history of reflux, but this does not feel like that any usually can take a Nexium and get it to go away which did not help with this. Esophageal spasm also on the differential. He gets the symptoms a lot at night he states, but sometimes when he is doing activities. It varies. 1 view chest x-ray obtained, it is normal on my interpretation. Mediastinum is narrow and there is no pneumothorax or consolidation. His labs are normal and his troponin returns in the single digits at 7. He did improve after being given aspirin and nitroglycerin, however. After having discomfort all night with a normal EKG and normal troponin and single digits, this is very unlikely to be acute coronary syndrome. Given his heart score 4, I discussed with cardio logy Dr. Malhotra, he agrees. The patient's stress test and echocardiogram are scheduled 3 days from now. If we admitted him, he would not be able to get the stress test until tomorrow, he recommends that he keep his scheduled testing and maintain the beta-larisa until then. He is happy to see him if needed when the testing is negative. Discussed this with the patient is comfortable with that plan and agrees that being admitted for stress test and her these conditions would not be his preference either. Lab Data Attestation: I reviewed the patient's lab results. Labs: Laboratory Results - last 24 hr 12/28/23 06:33 WBC 5.3 RBC 4.95 Hgb 14.7 Hct 43.4 MCV 87.7 MCH 29.7 MCHC 33.9 RDW Std Deviation 38.2 RDW Coeff of Danelle 11.9 Plt Count 256 MPV 9.6 Immature Gran % (Auto) 0.400 Neut % (Auto) 57.1 Lymph % (Auto) 31.7 [place] % (Auto) 8.9 Eos % (Auto) 1.1 Baso % (Auto) 0.8 Absolute Neuts (auto) 3.0 Absolute Lymphs (auto) 1.67 Nucleated RBC % 0 Sodium 138 Potassium 3.8 Chloride 107 Carbon Dioxide 26.0 Anion Gap 6 BUN 17 Creatinine 1.00 Estim Creat Clear Calc 79.98 Est GFR (MDRD) Af Amer 96 Est GFR (MDRD) Non-Af 79 BUN/Creatinine Ratio 17.0 Glucose 109 H Calcium 8.9 Troponin I High Sens 7 Rhythm Strip Rhythm Strip: Sinus Rhythm Rate: 55 Ectopy: None EKG Initial EKG: Attestation: I personally reviewed and interpreted this EKG as follows: Interpretation: Sinus Rhythm and No Acute Injury Pattern Comments: nml EKG Prior: No Prior Management Discussion w/another healthcare provider: Cane Cutter (cardiology) Discharge Plan Triage Chief Complaint: Chest Pain ED Provider: Mookie Angeles Dx/Rx/DC Orders Clinical Impression: Chest pain, unspecified Instructions: ED Chest Pain, Uncertain Cause Prescriptions: No Action sumatriptan succinate 25 MG tablet 25 mg PO PRN PRN (Reason: MIGRAINES) esomeprazole magnesium 40 MG capsule,delayed release(DR/EC) 40 mg PO DAILY metoprolol succinate 25 mg tablet extended release 24 hr 25 mg PO DAILY valsartan 160 mg tablet 160 mg PO DAILY Primary Care Provider: Rupert Falk NP Referrals: Rupert Falk NP, [employer] [Primary Care Provider] - Print Language: Georgian Disposition Disposition: Home, Self Care
[2023-12-28 06:34] VITALS: O2SAT 97
[2023-12-28 06:39] VITALS: BP 158/84; PULSE 57
[2023-12-28] MEDS: Aspirin 81 MG TAB.CHEW 162 MG PO (06:39)
[2023-12-28] MEDS: Nitroglycerin SL (ED/IMG/CATH) 0.4 MG TABLET SL ×2 (06:39→06:58)
[2023-12-28 06:41] LABS: Absolute Lymphocyte Count 1.67 X10^3/uL (0.83-4.51); Basophil# 0.04 X10^3/uL; Basophil% 0.8 % (0-1); Eosinophil# 0.06 X10^3/uL; Eosinophils% 1.1 % (0-5); Hematocrit 43.4 % (40-54); Hemoglobin 14.7 g/dL (13.0-16.5); Lymphocyte # 1.67 X10^3/ul (0.83-4.51); Lymphocyte % 31.7 % (19-41); Mean Corp Hgb Conc 33.9 g/dL (32-36); Mean Corpuscular Hgb 29.7 pg (27.0-32.0); Mean Corpuscular Volume 87.7 fL (80-94); Mean Platelet Vol. 9.6 fl (6.2-12.0); Monocyte# 0.47 X10^3/uL; Monocyte% 8.9 % (0-10); NRBC Flagged by Analyzer 0 % (0-5); Neutrophil % 57.1 % (47-70); Platelet Count 256 K/mm3 (150-450); RBC Distribution Width CV 11.9 % (11.6-14.6); RBC Distribution Width SD 38.2 fl (35.1-43.9); Red Blood Count 4.95 M/mm3 (4.6-6.2); White Blood Count 5.3 K/mm3 (4.4-11.0)
[2023-12-28 06:58] VITALS: BP 141/82; PULSE 55
[2023-12-28 06:59] LABS: Anion Gap 6 (5-15); BUN 17 mg/dL (7-18); Calcium,Total 8.9 mg/dL (8.5-10.1); Chloride 107 mmol/L (98-107); EST Glomerular Filtration Rate 79 mL/min (>60); Est Glom Filt Rate - Afr Amer 96 mL/min (>60); Estimated Creatinine Clearance 79.98 ml/min; Glucose 109 mg/dL (74-106); Potassium 3.8 mmol/L (3.5-5.1); Sodium Level 138 mmol/L (136-145); Troponin-I HS 7 pg/mL (3.0-78.0)
--- NOTE | 2023-12-28 07:11 | ED.RN ---
Dr. Angeles bedside
[2023-12-28 07:18] VITALS: BP 141/81; PULSE 52; RESP 11; O2SAT 95
[2023-12-28 07:29] VITALS: BP 141/81; PULSE 52; RESP 11; TEMP 36.6; O2SAT 95
== END 2023-12-28 07:29 | disposition home or self-care (01) ==
PROVIDERS: Emergency Provider Emergency Medicine; PCP Nurse Practitioner Family; Visit Provider Emergency Medicine
DX: R07.9 Chest pain, unspecified (principal); I10 Essential (primary) hypertension; K21.9 Gastro-esophageal reflux disease without esophagitis; Z79.899 Other long term (current) drug therapy
CPT/HCPCS: 71045; 80048; 84484; 85025; 93005; 99284; A4216

== ENCOUNTER → 2023-12-31 | Outpatient (CLI) | payer MEDICARE, OTHER, SELFPAY ==
--- NOTE | 2023-12-31 06:51 | ECHOD_ITS ---
Reason For Study: Chest Pain Procedure This was a 2D Doppler, Color Flow transthoracic echocardiogram. Myocardial strain analysis was performed in this exam to aid in the assessment of cardiac function. Exam performed in department. Left Ventricle Normal LV size. Mild concentric left ventricular hypertrophy. Left ventricular systolic function is normal. The left ventricular ejection fraction is 60 %. No regional wall motion abnormalities noted. Right Ventricle Normal RV size. Normal systolic function. Atria Normal left atrium. Normal right atrium. Mitral Valve Normal mitral valve. Tricuspid Valve Normal tricuspid valve. Mild (1+) tricuspid valve insufficiency. Pulmonary artery systolic pressure is 28 mmHg. Aortic Valve Trisinus/trileaflet aortic valve. Pulmonic Valve Normal pulmonic valve. Great Vessels Normal aortic root. The pulmonary artery is normal size. Inferior vena cava collapse with respiration. Pericardium/Pleural No pericardial effusion. MMode/2D Measurements & Calculations LVIDd: 4.6 cm IVSd: 1.4 cm Ao root diam: 3.6 cm LVIDs: 3.0 cm LVPWd: 1.2 cm RVDd: 3.7 cm FS: 35.4 % LAV(MOD-bp): 62.1 ml Ao sinus diam: 3.[address] Junction: 2.7 cm LAV(MOD-bp) Indexed: 31.1 ml/m2 LAV(MOD-sp2): 61.8 ml LAV(MOD-sp4): 55.7 ml LA dimension(2D): 4.1 cm LA A4 area: 20.5 cm2 RA A4 area: 18.7 cm2 TAPSE: 2.0 cm Time Measurements MV dec time: 0.29 sec Doppler Measurements & Calculations MV E max paul: 67.1 cm/sec Lat Peak E' Paul: 10.0 cm/sec Med Peak E' Paul: 7.3 cm/sec MV A max paul: 62.9 cm/sec E/E' lat: 6.7 E/E' med: 9.2 MV E/A: 1.1 MV V2 max: 78.6 cm/sec MV P1/2t max paul: 76.5 cm/sec Ao V2 max: 154.2 cm/sec MV max P.5 mmHg MV P1/2t: 97.7 msec Ao max P.5 mmHg MV V2 mean: 38.9 cm/sec MV dec slope: 229.3 cm/sec2 Ao V2 mean: 97.8 cm/sec MV mean P.75 mmHg MVA(P1/2t): 2.3 cm2 Ao mean P.5 mmHg MV V2 VTI: 30.8 cm Ao V2 VTI: 37.8 cm AV (velocity ratio): 0.83 LV V1 max: 121.5 cm/sec MR max paul: 495.4 cm/sec PA V2 max: 98.0 cm/sec LV V1 max P.9 mmHg MR max P.2 mmHg PA max PG (full): 2.4 mmHg LV V1 mean P.0 mmHg LV V1 mean: 79.6 cm/sec LV V1 VTI: 31.2 cm TR max paul: 243.8 cm/sec PI dec slope: 105.6 cm/sec2 TR max P.8 mmHg ECHO/Echo Complete Interpretation Summary Normal LV size. Left ventricular systolic function is normal. The left ventricular ejection fraction is 60 %. Pulmonary artery systolic pressure is 28 mmHg. Mild concentric left ventricular hypertrophy. The global longitudinal strain is normal. The global longitudinal strain = -18. 6 % (normal). Ordering Physician: Rupert Falk Referring Physician: Rupert Falk Performed By: Immanuel Joshua RCS
--- NOTE | 2023-12-31 16:13 | STRESSREP ---
Stress Test Report Pharmacologic myocardial perfusion stress test. 68-year-old man with a history of chest pain Resting EKG demonstrates sinus bradycardia with a rate of 51 bpm. Resting blood pressure is 122/80 mmHg. 0.4 mg of regadenoson was infused per usual protocol followed by rapid intravenous saline flush injection. Continuous EKG monitoring was performed. The maximum heart rate was 87 bpm which was 56% of max impacted heart rate the maximum workload was 1 metabolic equivalent. At rest there were no ST or T wave changes noted to suggest ischemia and at peak infusion nonspecific ST changes were noted which did not meet the criteria for ischemia. No clinical angina is noted. The final blood pressure was 118/70 mmHg. Myocardial perfusion protocol. 11.9 mCi of technetium 99m sestamibi was injected at rest. 0.4 mg of regadenoson was infused per usual protocol. At peak infusion 34.7 mCi of technetium 99m sestamibi was injected stress images were obtained stress and rest images were reconstructed and compared in the short axis vertical long and horizontal long axis. Gated images were also obtained. Perfusion SPECT analysis: Review of the stress images demonstrate normal uptake of tracer noted in all areas of the myocardium. The resting images similar demonstrated normal uptake of tracer noted in all areas of the myocardium. No areas of reversibility are noted to suggest ischemia and no previous infarct is noted. Gated SPECT analysis: The gated ejection fraction is 72%. Conclusion: Normal pharmacologic myocardial perfusion stress test. Preserved ejection fraction.
== END | disposition home or self-care (01) ==
LOC: CVS 06:46
PROVIDERS: PCP Nurse Practitioner Family; Referring Provider Nurse Practitioner Family; Visit Provider Nurse Practitioner Family
DX: R07.9 Chest pain, unspecified (principal); R00.2 Palpitations; I10 Essential (primary) hypertension
CPT/HCPCS: 78452; 93017; 93306; A9500; A4216; J2785

== ENCOUNTER → 2024-02-03 | Outpatient (CLI) | payer MEDICARE, OTHER, SELFPAY ==
[2024-02-03 10:38] LABS: Cholesterol 193 mg/dL (200); High Density Lipoprotein 44 mg/dL; Triglycerides 126 mg/dL; Very Low Density Lipoprotein 25 mg/dL (5-40)
== END | disposition home or self-care (01) ==
LOC: MTLAB 07:03
PROVIDERS: PCP Nurse Practitioner Family; Referring Provider Internal Medicine Cardiovascular Disease; Visit Provider Internal Medicine Cardiovascular Disease
DX: E78.5 Hyperlipidemia, unspecified (principal)
CPT/HCPCS: 36415; 80061

== ENCOUNTER → 2024-03-24 | Outpatient (CLI) | payer MEDICARE, OTHER, SELFPAY ==
--- NOTE | 2024-03-24 13:01 | CT_ITS ---
STUDY: CT CHEST WITHOUT CONTRAST REASON FOR EXAM: Male, 68 years old. CHEST PAIN OVER READ ONLY RADIATION DOSAGE (If Supplied By Facility): CTDIvol = ( 27.39 ) mGy, DLP = ( 1573.60 ) mGycm TECHNIQUE: Transaxial imaging was performed without the administration of intravenous contrast material. Individualized dose optimization techniques were used for this CT. COMPARISON: No relevant priors. FINDINGS: CHEST There is a mild degree of increased linear markings at the lung bases as well as the right middle lobe suggestive of mild scarring. There is no demonstrated pleural abnormality. There are calcifications of the coronary arteries. There are small lymph nodes within the mediastinum, which are normal in size and morphology most compatible with reactive lymph hyperplasia. Normal hilar regions. Normal unenhanced pulmonary arteries. There is atherosclerotic calcification of the aortic arch. There are degenerative changes of the thoracic spine. There is no demonstrated abnormality of the visualized upper abdomen. IMPRESSION: Coronary artery calcification. Findings suggestive of mild scarring at the lung bases and right middle lobe. Electronically Signed: Pravin Skelton MD at 10:22 EST , STUDY: CT CHEST WITH CONTRAST REASON FOR EXAM: Male, 68 years old. CHEST PAIN OVER READ ONLY RADIATION DOSAGE (If Supplied By Facility): CTDIvol = ( 27.39 ) mGy, DLP = ( 1573.60 ) mGycm TECHNIQUE: Transaxial imaging was performed following intravenous administration of [id number]. Individualized dose optimization techniques were used for this CT. COMPARISON: No relevant priors. FINDINGS: CHEST Increased linear markings at the lung bases and right middle lobe suggestive of scarring. There is no demonstrated pleural abnormality. There are calcifications of the coronary arteries. There are small lymph nodes within the mediastinum, which are normal in size and morphology most compatible with reactive lymph hyperplasia. Normal hilar regions. Normal unenhanced pulmonary arteries. There is atherosclerotic calcification of the aortic arch. There are degenerative changes of the thoracic spine. There is no demonstrated abnormality of the visualized upper abdomen. CT/Limited Chest CT Cardiac Only IMPRESSION: Coronary artery calcification. Electronically Signed: Pravin Skelton MD at 10:24 EST ,
[2024-03-24 13:23] VITALS: BP 149/79; PULSE 58; RESP 18; O2SAT 98; BMI 28.1
[2024-03-24 13:53] VITALS: BP 138/73; PULSE 58
[2024-03-24] MEDS: Nitroglycerin SL (ED/IMG/CATH) 0.4 MG TABLET SL (13:53)
[2024-03-24] MEDS: 0.9% Saline Lock 10 ML Syringe IV (13:54)
[2024-03-24 13:59] VITALS: BP 138/73; PULSE 58
--- NOTE | 2024-03-24 17:03 | CCTA.WCONT ---
CCTA w/Cont Coronary Arteries Date of Study:: 03/24/24 Chest pain hypertension Coronary Calcium Scoring: High-resolution Computed Tomographic imaging of the chest was performed on [03/24/2024], with particular attention paid to the coronary arteries. Intravenous contrast agent was administered per protocol and images reconstructed and displayed. LEFT MAIN CORONARY ARTERY: Mild calcification noted in this vessel of the left coronary cusp with no high-grade stenosis noted. Coronary calcium score is 70.7 [] LEFT ANTERIOR DESCENDING CORONARY ARTERY: Eccentric proximal calcification noted with a coronary calcium score of 90 and mild proximal eccentric stenosis with a mid vessel in the distal vessel having no significant stenosis present. Coronary calcium score of 90 [] LEFT CIRCUMFLEX CORONARY ARTERY: Nondominant vessel arising from the left main coronary artery with minimal atherosclerotic plaquing noted. Coronary calcium score of 0 [] RIGHT CORONARY ARTERY: Eccentric ostial calcification with the rest of the vessel being a dominant vessel with no significant stenosis present. Coronary calcium score of 2.6 [] THORACIC AORTA: [] PULMONARY ARTERY: [] LEFT ATRIUM/APPENDAGE: [] MITRAL VALVE: [] AORTIC VALVE: [] LEFT VENTRICLE: [] CORONARY CALCIUM SCORE: Total Agatston score of 163 with a percentile ranking between 25th and 50th percentile Conclusion: CT angiogram demonstrating mild to moderate atherosclerotic plaquing with no obvious high-grade stenosis present. []
== END | disposition home or self-care (01) ==
PROVIDERS: PCP Nurse Practitioner Family; Referring Provider Internal Medicine Cardiovascular Disease; Visit Provider Internal Medicine Cardiovascular Disease
DX: R07.9 Chest pain, unspecified (principal); R00.2 Palpitations; I11.9 Hypertensive heart disease without heart failure; G43.909 Migraine, unspecified, not intractable, without status migrainosus
CPT/HCPCS: 75571; 75574; 76380; Q9967